=== PATIENT | male | born 1965 | race Caucasian/White ===

== ENCOUNTER 2022-11-10 15:41 | Outpatient (CLI) | payer MEDICARE, SELFPAY ==
[2022-11-10 17:49] LABS: Abs Immature Grans 0.02 10^3/uL (0.0-0.06); Absolute Basophil Count 0.05 10^3/uL (0.0-0.2); Absolute Eosinophil Count 0.28 10^3/uL (0.0-0.7); Absolute Lymphocyte Count 1.57 10^3/uL (1.2-3.4); Absolute Monocyte Count 0.73 10^3/uL (0.1-0.8); Absolute Neutrophil Count 5.47 10^3/uL (1.2-6.7); Basophils % 0.6; Eosinophils % 3.4; HCT 38.4 % (40.0-50.0); HGB 13.4 g/dL (13.5-17.5); Immature Grans % 0.2; Lymphocytes % 19.3; MCH 29.4 pg (27.0-33.0); MCHC 34.9 % (32.0-36.0); MCV 84 fL (80-95); MPV 9.1 fL (8.0-11.0); Neutrophils % 67.5; Platelet Count 227 10^3/uL (130-400); RBC 4.56 10^6/uL (4.36-5.78); RDW 13.1 % (11.8-14.1); RDW-SD 39.8 fL; WBC 8.12 10^3/uL (4.4-10.8)
[2022-11-13 09:34] LABS: IgE 23 IU/mL (<158)
== END 2022-11-10 15:42 | disposition home or self-care (01) ==
LOC: PUL 15:43 → LBN 17:23
PROVIDERS: PCP Family Medicine; Visit Provider Student in an Organized Health Care Education/Training Program
DX: J45.909 Unspecified asthma, uncomplicated (principal)
CPT/HCPCS: 82785; 85025

== ENCOUNTER → 2023-08-16 13:06 | Outpatient (BNVA) | payer MEDICARE, SELFPAY | PROVIDERS: PCP Family Medicine; Referring Provider Family Medicine; Visit Provider Physician Assistant Surgical | DX: J44.9 Chronic obstructive pulmonary disease, unspecified (principal); Z79.51 Long term (current) use of inhaled steroids; Z87.891 Personal history of nicotine dependence | CPT/HCPCS: 99214 ==

== ENCOUNTER → 2024-03-06 14:29 | Outpatient (BNVA) | payer MEDICARE, SELFPAY | PROVIDERS: PCP Family Medicine; Referring Provider Family Medicine; Visit Provider Student in an Organized Health Care Education/Training Program | DX: J44.9 Chronic obstructive pulmonary disease, unspecified (principal); T78.40XA Allergy, unspecified, initial encounter; Z87.891 Personal history of nicotine dependence | CPT/HCPCS: 99214 ==

== ENCOUNTER → 2025-04-03 14:24 | Outpatient (BNVA) | payer MEDICARE, SELFPAY | PROVIDERS: PCP Family Medicine; Referring Provider Family Medicine; Visit Provider Physician Assistant Surgical | DX: J44.89 Other specified chronic obstructive pulmonary disease (principal); T78.40XA Allergy, unspecified, initial encounter; Z87.891 Personal history of nicotine dependence | CPT/HCPCS: 99214 ==